=== PATIENT | male | born 1965 | race African-American/Black ===

== ENCOUNTER 2017-02-11 11:12 | Emergency (ER) | payer OTHER ==
[~2017-02-11] VITALS: Ht 180.3 cm; Wt 104.3 kg
[2017-02-11] MEDS ORDERED: NAPROSYN500 MG PO (11:40)
[2017-02-11] MEDS ORDERED: PREDNISONE 20 M20 MG PO (11:40)
[2017-02-11 11:53] VITALS: BP 139/93
== END 2017-02-11 11:53 | disposition home or self-care (01) ==
LOC: ER 11:12
DX: M54.16 Radiculopathy, lumbar region (principal); I10 Essential (primary) hypertension; F17.210 Nicotine dependence, cigarettes, uncomplicated